=== PATIENT | male | born 1950 | race Hispanic/Latino ===

== ENCOUNTER 2022-10-19 12:26 | Emergency (ER) | payer SELFPAY ==
[~2022-10-19 12:26] MED LIST: Iopamidol-370 76% 500 ML 1 ML ONE
[2022-10-19 13:14] LABS: #Eosinphils 0.3 thou/uL (0.0-0.7); #Monocytes 0.6 thou/uL (0.11-0.59); #Neutrophils 4.5 thou/uL (1.40-6.50); %Basophils 0.5 % (0.0-1.0); %Eosinophils 3.2 % (0.0-10.0); %Monocytes 7.5 % (0.0-10.0); %Neutrophils 52.8 % (42.0-75.0); Hemoglobin 14.4 g/dL (14.0-18.0); Mean Corpuscular HGB CONC 31.9 g/dL (32.0-36.0); Mean Corpuscular Hemoglobin 29.7 pg (27.0-31.0); Mean Platelet Volume 9.8 fL (7.4-10.4); Platelet Count 185 10x3/uL (130-400); RBC Distribution Width 12.5 % (11.5-14.5); Red Blood Cell (RBC) Count 4.86 mill/uL (4.70-6.10); White Blood Cell (WBC) Count 8.4 10x3/uL (4.8-10.8)
[2022-10-19 13:36] LABS: ALT (SGPT) 14 U/L (8-55); AST (SGOT) 12 U/L (5-34); Albumin 4.2 g/dL (3.4-4.8); Alkaline Phosphatase 128 U/L (40-110); Anion Gap 12 mmol/L (10-20); BUN (Urea Nitrogen) 8 mg/dL (8.4-25.7); Bilirubin, Total 0.8 mg/dL (0.2-1.2); Calc. Creatinine Clearance 0 mL/min (70-130); Calcium 9.3 mg/dL (7.8-10.44); Carbon Dioxide 28 mmol/L (23-31); Chloride 103 mmol/L (98-107); Estimated GFR 86; Globulin 3.7 g/dL (2.4-3.5); Glucose 254 mg/dL (83-110); Lipase 45 U/L (8-78); Potassium 4.4 mmol/L (3.5-5.1); Protein, Total 7.9 g/dL (5.8-8.1); Sodium 139 mmol/L (136-145)
[2022-10-19 13:43] LABS: Bilirubin Negative (Negative); Blood, Urine Negative (Negative); Clarity Clear (Clear); Glucose, Urine (Dipstick) 300 mg/dL (Negative); Ketone, Urine Negative (Negative); Leukocyte Negative Leu/uL (Negative); Nitrite Negative (Negative); Protein, Urine (Dipstick) 20 mg/dL (Neg-Trace); Specific Gravity, Urine 1.006 (1.002-1.036); Urobilinogen Normal mg/dL (Less than 2)
== END 2022-10-19 14:37 | disposition home or self-care (01) ==
LOC: ERS 12:26
DX: K59.00 Constipation, unspecified (principal); I10 Essential (primary) hypertension; E11.9 Type 2 diabetes mellitus without complications; Z79.899 Other long term (current) drug therapy; Z79.82 Long term (current) use of aspirin; Z79.84 Long term (current) use of oral hypoglycemic drugs
CPT/HCPCS: 36415; 74177; 80053; 81003; 83690; 85025; Q9967

== ENCOUNTER 2022-11-06 21:59 | Inpatient (IN) | payer SELFPAY ==
[2022-11-06 22:49] LABS: #Basophils 0.1 thou/uL (0.0-0.2); #Eosinphils 0.2 thou/uL (0.0-0.7); #Lymphocytes 1.8 thou/uL (1.20-3.40); #Neutrophils 7.9 thou/uL (1.40-6.50); %Basophils 0.6 % (0.0-1.0); %Lymphocytes 16.4 % (21.0-51.0); %Neutrophils 72.1 % (42.0-75.0); Hemoglobin 14.1 g/dL (14.0-18.0); Mean Corpuscular HGB CONC 33.5 g/dL (32.0-36.0); Mean Corpuscular Hemoglobin 30.6 pg (27.0-31.0); Mean Corpuscular Volume 91.1 fl (78.0-98.0); Mean Platelet Volume 9.5 fL (7.4-10.4); Platelet Count 192 10x3/uL (130-400); RBC Distribution Width 11.8 % (11.5-14.5); Red Blood Cell (RBC) Count 4.62 mill/uL (4.70-6.10)
[2022-11-06 23:08] LABS: ALT (SGPT) 53 U/L (8-55); AST (SGOT) 94 U/L (5-34); Albumin 4.1 g/dL (3.4-4.8); Alkaline Phosphatase 184 U/L (40-110); Anion Gap 13 mmol/L (10-20); BUN (Urea Nitrogen) 8 mg/dL (8.4-25.7); Bilirubin, Total 2.2 mg/dL (0.2-1.2); Calc. Creatinine Clearance 0 mL/min (70-130); Calcium 8.8 mg/dL (7.8-10.44); Carbon Dioxide 21 mmol/L (23-31); Chloride 95 mmol/L (98-107); Estimated GFR 83; Globulin 3.1 g/dL (2.4-3.5); Glucose 229 mg/dL (83-110); Lipase 382 U/L (8-78); Potassium 5.4 mmol/L (3.5-5.1); Protein, Total 7.2 g/dL (5.8-8.1); Sodium 124 mmol/L (136-145)
[2022-11-06] MEDS ORDERED: Mag-Al 1200 mg/1200 mg/30 ML UDCUP ONE (23:11)
[2022-11-06] MEDS ORDERED: Lidocaine Viscous Sol 2% 15 ml UD Cup ONE (23:11)
[2022-11-07] MEDS ORDERED: diphenhydrAMINE 50 MG/ML VIAL ONE (01:26)
[2022-11-07] MEDS ORDERED: Famotidine/PF 20 mg/2ml Vial ONE (01:26)
[2022-11-07] MEDS ORDERED: Piperacillin/Tazobactam 4.5 GM VIAL ONE (01:55)
[2022-11-07] MEDS ORDERED: Morphine 4 MG/ML VIAL SLOW IVP PRN (03:25)
[2022-11-07] MEDS ORDERED: Ondansetron PF 4 MG/2 ML Vial IVP PRN (03:30)
[2022-11-07] MEDS ORDERED: Acetaminophen 325 MG TAB PO PRN (03:30)
[2022-11-07] MEDS ORDERED: Ondansetron ODT 4 MG TAB SL PRN (03:30)
[2022-11-07] MEDS ORDERED: Sodium Chloride 0.9% 1,000 ML IV SCH (03:30)
[2022-11-07] MEDS: Piperacillin/Tazobactam 3.375 GM in Sodium Chloride 0.9% 100 ML IVPB SCH ×2 (04:50→14:53)
[2022-11-07 05:26] LABS: ALT (SGPT) 97 U/L (8-55); AST (SGOT) 148 U/L (5-34); Alkaline Phosphatase 201 U/L (40-110); Anion Gap 13 mmol/L (10-20); BUN (Urea Nitrogen) 6 mg/dL (8.4-25.7); Bilirubin, Total 2.9 mg/dL (0.2-1.2); Calc. Creatinine Clearance 0 mL/min (70-130); Carbon Dioxide 21 mmol/L (23-31); Chloride 97 mmol/L (98-107); Estimated GFR 88; Globulin 3.2 g/dL (2.4-3.5); Glucose 153 mg/dL (83-110); Potassium 4.5 mmol/L (3.5-5.1); Protein, Total 7.2 g/dL (5.8-8.1); Sodium 126 mmol/L (136-145)
[2022-11-07 06:39] VITALS: BMI 33.0
[2022-11-07] MEDS: Metoprolol Tartrate 25 MG TAB PO SCH (08:24)
[2022-11-07] MEDS: Famotidine/PF 20 mg/2ml Vial SLOW IVP SCH (08:24)
[2022-11-07] MEDS: Tamsulosin HCl 0.4 MG CAP PO SCH (08:25)
[2022-11-07] MEDS ORDERED: FLU VACC QS2022-23(65YR UP)/PF 240 MCG/0.7 ML SYRINGE IM ONE (08:45)
[2022-11-07] MEDS ORDERED: Dextrose 50% Abboject 50 ML SYRINGE SLOW IVP PRN (11:14)
[2022-11-07] MEDS ORDERED: Dextrose 5% in Water 1,000 ML IV PRN (11:14)
[2022-11-07] MEDS ORDERED: HumaLOG 300 UNITS/3 ML VIAL SC PRN ×2 (11:14)
[2022-11-07] MEDS ORDERED: Aspirin 81 mg Enteric Coated Tablet PO SCH (13:30)
[2022-11-07] MEDS ORDERED: Amlodipine 5 MG TAB PO SCH (13:30)
[2022-11-07] MEDS ORDERED: fentaNYL PF 100 MCG/2 ML SYRINGE ONE (19:17)
[2022-11-07] MEDS ORDERED: Bupivacaine/Epinephrine 0.25% 30 ML VIAL ONE (19:47)
[2022-11-07] MEDS ORDERED: Iopamidol 15 ML ONE (19:47)
[2022-11-07] MEDS ORDERED: ePHEDrine 50 MG/ML VIAL ONE (20:05)
[2022-11-07] MEDS ORDERED: PROPOFOL 200 MG/20 ML VIAL ONE (20:05)
[2022-11-07] MEDS ORDERED: Dexamethasone 20 MG/5 ML VIAL ONE (20:05)
[2022-11-07] MEDS ORDERED: Ondansetron PF 4 MG/2 ML Vial ONE (20:05)
[2022-11-07] MEDS ORDERED: Rocuronium Bromide 10 MG/ML (10ML VIAL) ONE (20:05)
[2022-11-07] MEDS: Enoxaparin Sodium 40 MG/0.4 ML SYRINGE SC SCH (21:10)
[2022-11-07] MEDS ORDERED: SUGAMMADEX SODIUM 200 MG/2 ML VIAL ONE (21:53)
[2022-11-07] MEDS ORDERED: traMADol HCl 50 MG TAB PO PRN (22:36)
[2022-11-07] MEDS ORDERED: FENTANYL 50 MCG/ML 1 ML VIAL ONE (23:05)
[2022-11-08] MEDS: Metoprolol Tartrate 25 MG TAB PO SCH ×3 (00:25→20:53)
[2022-11-08] MEDS: traMADol HCl 50 MG TAB PO SCH ×4 (00:31→19:42)
[2022-11-08 07:14] LABS: #Lymphocytes 1.1 thou/uL (1.20-3.40); #Monocytes 0.4 thou/uL (0.11-0.59); #Neutrophils 8.6 thou/uL (1.40-6.50); %Basophils 0.2 % (0.0-1.0); %Eosinophils 0.1 % (0.0-10.0); %Lymphocytes 10.6 % (21.0-51.0); %Monocytes 3.6 % (0.0-10.0); %Neutrophils 85.6 % (42.0-75.0); Hemoglobin 14.3 g/dL (14.0-18.0); Mean Corpuscular HGB CONC 32.5 g/dL (32.0-36.0); Mean Corpuscular Hemoglobin 30.1 pg (27.0-31.0); Mean Corpuscular Volume 92.4 fl (78.0-98.0); Mean Platelet Volume 9.3 fL (7.4-10.4); Platelet Count 249 10x3/uL (130-400); RBC Distribution Width 12.1 % (11.5-14.5); Red Blood Cell (RBC) Count 4.77 mill/uL (4.70-6.10)
[2022-11-08 07:38] LABS: ALT (SGPT) 153 U/L (8-55); AST (SGOT) 124 U/L (5-34); Albumin 3.8 g/dL (3.4-4.8); Alkaline Phosphatase 227 U/L (40-110); Anion Gap 14 mmol/L (10-20); BUN (Urea Nitrogen) 8 mg/dL (8.4-25.7); Bilirubin, Total 2.1 mg/dL (0.2-1.2); Calc. Creatinine Clearance 77 mL/min (70-130); Calcium 8.7 mg/dL (7.8-10.44); Carbon Dioxide 21 mmol/L (23-31); Chloride 103 mmol/L (98-107); Estimated GFR 79; Glucose 219 mg/dL (83-110); Potassium 5.4 mmol/L (3.5-5.1); Protein, Total 6.8 g/dL (5.8-8.1); Sodium 133 mmol/L (136-145)
[2022-11-08 07:40] LABS: ALT (SGPT) 150 U/L (8-55); AST (SGOT) 120 U/L (5-34); Albumin 3.8 g/dL (3.4-4.8); Alkaline Phosphatase 222 U/L (40-110); Bilirubin, Direct 1.2 mg/dL (0.1-0.3)
[2022-11-08] MEDS: Aspirin 81 mg Enteric Coated Tablet PO SCH (08:50)
[2022-11-08] MEDS: Famotidine/PF 20 mg/2ml Vial SLOW IVP SCH ×2 (08:50→20:47)
[2022-11-08] MEDS: Tamsulosin HCl 0.4 MG CAP PO SCH (08:51)
[2022-11-08] MEDS: Polyethylene Glycol 3350 17 GM Packet PO SCH ×2 (08:51→20:50)
[2022-11-08 08:54] LABS: SARS-CoV-2 NAA Rapid Test Not Detected (NotDetected)
[2022-11-08] MEDS ORDERED: Amlodipine 5 MG TAB PO SCH ×2 (09:00→09:15)
[2022-11-08] MEDS ORDERED: Morphine 4 MG/ML VIAL SLOW IVP PRN (15:40)
[2022-11-08] MEDS: Enoxaparin Sodium 40 MG/0.4 ML SYRINGE SC SCH (20:52)
[2022-11-09] MEDS: traMADol HCl 50 MG TAB PO SCH ×5 (01:22→23:48)
[2022-11-09 07:36] LABS: #Eosinphils 0.1 thou/uL (0.0-0.7); #Lymphocytes 2.3 thou/uL (1.20-3.40); #Monocytes 1.2 thou/uL (0.11-0.59); %Basophils 0.3 % (0.0-1.0); %Eosinophils 0.5 % (0.0-10.0); %Lymphocytes 21.3 % (21.0-51.0); %Monocytes 11.7 % (0.0-10.0); %Neutrophils 66.1 % (42.0-75.0); Hemoglobin 13.3 g/dL (14.0-18.0); Mean Corpuscular HGB CONC 31.4 g/dL (32.0-36.0); Mean Corpuscular Hemoglobin 29.6 pg (27.0-31.0); Mean Corpuscular Volume 94.2 fl (78.0-98.0); Mean Platelet Volume 9.7 fL (7.4-10.4); Platelet Count 243 10x3/uL (130-400); RBC Distribution Width 12.4 % (11.5-14.5); Red Blood Cell (RBC) Count 4.49 mill/uL (4.70-6.10); White Blood Cell (WBC) Count 10.6 10x3/uL (4.8-10.8)
[2022-11-09 07:56] LABS: ALT (SGPT) 174 U/L (8-55); AST (SGOT) 150 U/L (5-34); Albumin 3.9 g/dL (3.4-4.8); Alkaline Phosphatase 277 U/L (40-110); Anion Gap 15 mmol/L (10-20); BUN (Urea Nitrogen) 21 mg/dL (8.4-25.7); Bilirubin, Total 3.3 mg/dL (0.2-1.2); Calc. Creatinine Clearance 54 mL/min (70-130); Calcium 8.8 mg/dL (7.8-10.44); Carbon Dioxide 24 mmol/L (23-31); Chloride 99 mmol/L (98-107); Estimated GFR 52; Globulin 3.4 g/dL (2.4-3.5); Glucose 191 mg/dL (83-110); Potassium 4.5 mmol/L (3.5-5.1); Protein, Total 7.3 g/dL (5.8-8.1); Sodium 133 mmol/L (136-145)
[2022-11-09] MEDS: Amlodipine 10 MG TAB PO SCH (08:16)
[2022-11-09] MEDS: Aspirin 81 mg Enteric Coated Tablet PO SCH (08:16)
[2022-11-09] MEDS: Tamsulosin HCl 0.4 MG CAP PO SCH (08:17)
[2022-11-09] MEDS: Famotidine/PF 20 mg/2ml Vial SLOW IVP SCH ×2 (08:17→21:44)
[2022-11-09] MEDS: Metoprolol Tartrate 25 MG TAB PO SCH ×2 (08:17→21:36)
[2022-11-09] MEDS: Polyethylene Glycol 3350 17 GM Packet PO SCH ×2 (08:17→21:27)
[2022-11-09] MEDS ORDERED: Sodium Chloride 0.9% 1,000 ML IV SCH ×2 (09:45→10:45)
[2022-11-09] MEDS: Ondansetron PF 4 MG/2 ML Vial IVP PRN ×2 (12:43→23:51)
[2022-11-09] MEDS ORDERED: Mineral Oil ENEMA PR SCH (18:00)
[2022-11-09] MEDS: Senokot S 8.6-50 MG TAB PO SCH (21:33)
[2022-11-09] MEDS: Enoxaparin Sodium 40 MG/0.4 ML SYRINGE SC SCH (21:44)
[2022-11-10] MEDS: traMADol HCl 50 MG TAB PO SCH ×4 (06:00→23:01)
[2022-11-10 06:48] LABS: #Eosinphils 0.2 thou/uL (0.0-0.7); #Lymphocytes 1.8 thou/uL (1.20-3.40); #Monocytes 0.8 thou/uL (0.11-0.59); %Basophils 0.4 % (0.0-1.0); %Eosinophils 2.5 % (0.0-10.0); %Lymphocytes 25.9 % (21.0-51.0); %Monocytes 12.3 % (0.0-10.0); %Neutrophils 58.9 % (42.0-75.0); Hemoglobin 12.7 g/dL (14.0-18.0); Mean Corpuscular HGB CONC 32.5 g/dL (32.0-36.0); Mean Corpuscular Hemoglobin 30.5 pg (27.0-31.0); Mean Corpuscular Volume 93.8 fl (78.0-98.0); Mean Platelet Volume 9.4 fL (7.4-10.4); Platelet Count 215 10x3/uL (130-400); RBC Distribution Width 12.2 % (11.5-14.5); Red Blood Cell (RBC) Count 4.15 mill/uL (4.70-6.10); White Blood Cell (WBC) Count 6.8 10x3/uL (4.8-10.8)
[2022-11-10 07:11] LABS: ALT (SGPT) 209 U/L (8-55); AST (SGOT) 140 U/L (5-34); Albumin 3.5 g/dL (3.4-4.8); Alkaline Phosphatase 347 U/L (40-110); Anion Gap 12 mmol/L (10-20); BUN (Urea Nitrogen) 11 mg/dL (8.4-25.7); Calc. Creatinine Clearance 88 mL/min (70-130); Calcium 8.5 mg/dL (7.8-10.44); Carbon Dioxide 21 mmol/L (23-31); Chloride 101 mmol/L (98-107); Estimated GFR 91; Globulin 3.2 g/dL (2.4-3.5); Glucose 182 mg/dL (83-110); Lipase 534 U/L (8-78); Potassium 4.6 mmol/L (3.5-5.1); Protein, Total 6.7 g/dL (5.8-8.1); Sodium 129 mmol/L (136-145)
[2022-11-10] MEDS: Famotidine/PF 20 mg/2ml Vial SLOW IVP SCH ×2 (08:00→21:55)
[2022-11-10] MEDS: Amlodipine 10 MG TAB PO SCH (08:00)
[2022-11-10] MEDS: Polyethylene Glycol 3350 17 GM Packet PO SCH ×2 (08:00→21:55)
[2022-11-10] MEDS: Aspirin 81 mg Enteric Coated Tablet PO SCH (08:00)
[2022-11-10] MEDS: Senokot S 8.6-50 MG TAB PO SCH ×2 (08:00→21:55)
[2022-11-10] MEDS: Tamsulosin HCl 0.4 MG CAP PO SCH (08:00)
[2022-11-10] MEDS: Metoprolol Tartrate 25 MG TAB PO SCH ×2 (08:01→21:55)
[2022-11-10] MEDS ORDERED: Iopamidol-370 76% 500 ML 1 ML ONE (10:54)
[2022-11-10] MEDS ORDERED: GASTROGRAFIN 30 ML BOT ONE (10:54)
[2022-11-10] MEDS ORDERED: Bisacodyl 10 MG SUPP PR PRN (11:25)
[2022-11-10] MEDS ORDERED: Iopamidol 30 ML ONE (14:14)
[2022-11-10] MEDS ORDERED: Indomethacin 50 MG SUPP ONE (14:19)
[2022-11-10] MEDS ORDERED: Succinylcholine 200 MG/10 ml SYRINGE FS ONE (14:51)
[2022-11-10] MEDS ORDERED: ePHEDrine 50 MG/ML VIAL ONE (14:51)
[2022-11-10] MEDS ORDERED: Ondansetron HCl/PF 4 MG/2 ML Vial IVP PRN (16:38)
[2022-11-10] MEDS ORDERED: Promethazine HCl 25 MG/ML VIAL IVPB PRN (16:38)
[2022-11-10] MEDS ORDERED: Promethazine HCl 25 MG/ML VIAL IM PRN (16:38)
[2022-11-10] MEDS: Sodium Chloride 0.9% 1,000 ML IV SCH (19:30)
[2022-11-10] MEDS: Enoxaparin Sodium 40 MG/0.4 ML SYRINGE SC SCH (21:55)
[2022-11-11] MEDS: Sodium Chloride 0.9% 1,000 ML IV SCH ×2 (03:12→22:30)
[2022-11-11] MEDS ORDERED: Ketorolac Tromethamine 30 MG/ML VIAL IVP SCH (05:00)
[2022-11-11] MEDS: traMADol HCl 50 MG TAB PO SCH ×3 (06:19→18:32)
[2022-11-11 07:16] LABS: #Eosinphils 0.2 thou/uL (0.0-0.7); #Lymphocytes 2.1 thou/uL (1.20-3.40); #Neutrophils 4.6 thou/uL (1.40-6.50); %Basophils 0.2 % (0.0-1.0); %Eosinophils 2.2 % (0.0-10.0); %Monocytes 13.1 % (0.0-10.0); %Neutrophils 58.5 % (42.0-75.0); Hemoglobin 12.1 g/dL (14.0-18.0); Mean Corpuscular HGB CONC 32.3 g/dL (32.0-36.0); Mean Corpuscular Hemoglobin 30.5 pg (27.0-31.0); Mean Corpuscular Volume 94.4 fl (78.0-98.0); Mean Platelet Volume 8.9 fL (7.4-10.4); Platelet Count 201 10x3/uL (130-400); Red Blood Cell (RBC) Count 3.97 mill/uL (4.70-6.10); White Blood Cell (WBC) Count 7.9 10x3/uL (4.8-10.8)
[2022-11-11 07:36] LABS: ALT (SGPT) 177 U/L (8-55); AST (SGOT) 97 U/L (5-34); Albumin 3.2 g/dL (3.4-4.8); Alkaline Phosphatase 301 U/L (40-110); Anion Gap 11 mmol/L (10-20); BUN (Urea Nitrogen) 11 mg/dL (8.4-25.7); Bilirubin, Direct 1.7 mg/dL (0.1-0.3); Bilirubin, Total 2.7 mg/dL (0.2-1.2); Calc. Creatinine Clearance 91 mL/min (70-130); Calcium 8.1 mg/dL (7.8-10.44); Carbon Dioxide 24 mmol/L (23-31); Chloride 102 mmol/L (98-107); Estimated GFR 92; Globulin 2.8 g/dL (2.4-3.5); Glucose 115 mg/dL (83-110); Lipase 51 U/L (8-78); Potassium 4.3 mmol/L (3.5-5.1); Sodium 133 mmol/L (136-145)
[2022-11-11] MEDS ORDERED: GoLYTELY 4,000 ml Bottle PO SCH (09:00)
[2022-11-11] MEDS: Amlodipine 10 MG TAB PO SCH (10:06)
[2022-11-11] MEDS: Metoprolol Tartrate 25 MG TAB PO SCH ×2 (10:06→21:48)
[2022-11-11] MEDS: Senokot S 8.6-50 MG TAB PO SCH ×2 (10:06→21:48)
[2022-11-11] MEDS: Aspirin 81 mg Enteric Coated Tablet PO SCH (10:06)
[2022-11-11] MEDS: Polyethylene Glycol 3350 17 GM Packet PO SCH ×2 (10:06→21:48)
[2022-11-11] MEDS: Tamsulosin HCl 0.4 MG CAP PO SCH (10:07)
[2022-11-11] MEDS: Famotidine/PF 20 mg/2ml Vial SLOW IVP SCH ×2 (10:07→21:48)
[2022-11-11] MEDS ORDERED: Mineral Oil ENEMA PR SCH (12:15)
[2022-11-11] MEDS ORDERED: Bisacodyl 10 MG SUPP PR SCH (12:15)
[2022-11-11] MEDS: Enoxaparin Sodium 40 MG/0.4 ML SYRINGE SC SCH (21:48)
[2022-11-12] MEDS: traMADol HCl 50 MG TAB PO SCH ×3 (00:48→12:47)
[2022-11-12 07:51] LABS: ALT (SGPT) 134 U/L (8-55); AST (SGOT) 54 U/L (5-34); Albumin 3.1 g/dL (3.4-4.8); Alkaline Phosphatase 243 U/L (40-110); Anion Gap 12 mmol/L (10-20); BUN (Urea Nitrogen) 9 mg/dL (8.4-25.7); Bilirubin, Total 1.5 mg/dL (0.2-1.2); Calc. Creatinine Clearance 102 mL/min (70-130); Calcium 7.9 mg/dL (7.8-10.44); Carbon Dioxide 24 mmol/L (23-31); Chloride 102 mmol/L (98-107); Estimated GFR 96; Globulin 2.8 g/dL (2.4-3.5); Glucose 107 mg/dL (83-110); Potassium 3.7 mmol/L (3.5-5.1); Protein, Total 5.9 g/dL (5.8-8.1); Sodium 134 mmol/L (136-145)
[2022-11-12] MEDS ORDERED: Bisacodyl 10 MG SUPP PR SCH (09:00)
[2022-11-12] MEDS: Aspirin 81 mg Enteric Coated Tablet PO SCH (09:18)
[2022-11-12] MEDS: Tamsulosin HCl 0.4 MG CAP PO SCH (09:18)
[2022-11-12] MEDS: Metoprolol Tartrate 25 MG TAB PO SCH (09:18)
[2022-11-12] MEDS: Polyethylene Glycol 3350 17 GM Packet PO SCH (09:19)
[2022-11-12] MEDS: Famotidine/PF 20 mg/2ml Vial SLOW IVP SCH (09:19)
[2022-11-12] MEDS: Amlodipine 10 MG TAB PO SCH (09:19)
[2022-11-12] MEDS: Senokot S 8.6-50 MG TAB PO SCH (09:20)
[2022-11-12] MEDS: Sodium Chloride 0.9% 1,000 ML IV SCH (09:20)
[2022-11-12 15:15] VITALS: BP 170/76; TEMP 98
== END 2022-11-12 15:15 | disposition home or self-care (01) | DRG 417 ==
LOC: ERS 21:59 → T4-B 11-07 02:49
PROVIDERS: ADMIT Internal Medicine Nephrology; ATTEND Family Medicine
PROC: 0FT44ZZ Resection of Gallbladder, Percutaneous Endoscopic Approach (ICD-10-PCS; principal; 2022-11-07)
PROC: 0WQF4ZZ Repair Abdominal Wall, Percutaneous Endoscopic Approach (ICD-10-PCS; 2022-11-07)
PROC: 0FJB8ZZ Inspection of Hepatobiliary Duct, Via Natural or Artificial Opening Endoscopic (ICD-10-PCS; 2022-11-10)
DX: K80.00 Calculus of gallbladder with acute cholecystitis without obstruction (principal); K85.90 Acute pancreatitis without necrosis or infection, unspecified; K56.7 Ileus, unspecified; N17.9 Acute kidney failure, unspecified; E87.1 Hypo-osmolality and hyponatremia; Z20.822 Contact with and (suspected) exposure to COVID-19; I25.10 Atherosclerotic heart disease of native coronary artery without angina pectoris; E11.9 Type 2 diabetes mellitus without complications; K42.9 Umbilical hernia without obstruction or gangrene; K57.50 Diverticulosis of both small and large intestine without perforation or abscess without bleeding; K59.00 Constipation, unspecified; F41.9 Anxiety disorder, unspecified; E78.00 Pure hypercholesterolemia, unspecified; E66.9 Obesity, unspecified; N40.0 Benign prostatic hyperplasia without lower urinary tract symptoms; I10 Essential (primary) hypertension; F32.A Depression, unspecified; I25.2 Old myocardial infarction; Z79.82 Long term (current) use of aspirin; Z79.899 Other long term (current) drug therapy
CPT/HCPCS: 36415; 36416; 36430; 71045; 74177; 74181; 74330; 76705; 80053; 82248; 83690; 83880; 83930; 83935; 84300; 84484; 85025; 86850; 86900; 86901; 88304; 93005; 93306; 96374; 96375; C1889; J1100; J1200; J1610; J1650; J1815; J1885; J2270; J2405; J2543; J2704; J3010; J3490; J7050; P9035; Q9963; Q9967; S0028; U0002

== ENCOUNTER 2022-12-04 00:02 | Emergency (ER) | payer SELFPAY ==
[2022-12-04 01:04] LABS: #Eosinphils 0.5 thou/uL (0.0-0.7); #Monocytes 1.1 thou/uL (0.11-0.59); #Neutrophils 4.9 thou/uL (1.40-6.50); %Basophils 0.2 % (0.0-1.0); %Eosinophils 5.5 % (0.0-10.0); %Lymphocytes 31.5 % (21.0-51.0); %Monocytes 11.3 % (0.0-10.0); %Neutrophils 51.4 % (42.0-75.0); Hemoglobin 13.1 g/dL (14.0-18.0); Mean Corpuscular HGB CONC 33.3 g/dL (32.0-36.0); Mean Corpuscular Hemoglobin 30.4 pg (27.0-31.0); Mean Corpuscular Volume 91.5 fl (78.0-98.0); Mean Platelet Volume 9.7 fL (7.4-10.4); Platelet Count 202 10x3/uL (130-400); RBC Distribution Width 11.9 % (11.5-14.5); Red Blood Cell (RBC) Count 4.31 mill/uL (4.70-6.10); White Blood Cell (WBC) Count 9.5 10x3/uL (4.8-10.8)
[2022-12-04 02:42] LABS: ALT (SGPT) 14 U/L (8-55); AST (SGOT) 14 U/L (5-34); Albumin 3.8 g/dL (3.4-4.8); Alkaline Phosphatase 138 U/L (40-110); Anion Gap 14 mmol/L (10-20); BUN (Urea Nitrogen) 9 mg/dL (8.4-25.7); Bilirubin, Total 0.7 mg/dL (0.2-1.2); Calc. Creatinine Clearance 0 mL/min (70-130); Calcium 8.8 mg/dL (7.8-10.44); Carbon Dioxide 23 mmol/L (23-31); Chloride 103 mmol/L (98-107); Estimated GFR 96; Globulin 3.4 g/dL (2.4-3.5); Glucose 107 mg/dL (83-110); Potassium 4.8 mmol/L (3.5-5.1); Protein, Total 7.2 g/dL (5.8-8.1); Sodium 135 mmol/L (136-145)
[2022-12-04] MEDS ORDERED: LORazepam 2 MG/ML SYR.(CARPUJECT) ONE (02:52)
[2022-12-04] MEDS ORDERED: hydrALAZINE 20 MG/ML VIAL ONE (02:52)
[2022-12-04] MEDS ORDERED: Aspirin Chewable 81 MG TAB ONE (02:52)
== END 2022-12-04 04:04 | disposition home or self-care (01) ==
LOC: ERS 00:02
DX: I10 Essential (primary) hypertension (principal); E11.9 Type 2 diabetes mellitus without complications
CPT/HCPCS: 36415; 70450; 80053; 84484; 85025; 93005; 96374; 96375; J0360; J2060